=== PATIENT | male | born 1980 | race Caucasian/White ===

== ENCOUNTER 2022-01-11 18:50 | Emergency (ER) | payer MEDICAID ==
[~2022-01-11] VITALS: Ht 167.6 cm; Wt 72.0 kg
--- NOTE | 2022-01-11 20:16 | NUR ---
PT STATES HE LAST TOOK TYLENOL ABOUT 4 HOURS BEFORE HE ARRIVED HERE AT THE ER, STATES HE IS NOT SUPPOSED TO HAVE IBUPROFEN BECAUSE HE'S HAD "BLOODY DIARRHEA" AND THAT HE MAY HAVE ULCERATIVE COLITIS
[2022-01-11] MEDS ORDERED: acetaminophen 325mg tablet PO ONE (20:20)
[2022-01-11 20:41] LABS: BASOPHILS # (AUTO) 0.1 X10'3 (0-0.2); BASOPHILS % (AUTO) 0.5 % (0-1); EOSINOPHILS # (AUTO) 0.1 X10'3 (0-0.9); EOSINOPHILS % (AUTO) 0.7 % (0-6); HEMATOCRIT 42.1 % (42.0-52.0); HEMOGLOBIN 14.7 g/dl (14.0-17.9); LYMPHOCYTES # (AUTO) 1.1 X10'3 (1.1-4.8); LYMPHOCYTES % (AUTO) 9.4 % (21-51); MEAN CORPUSCULAR HEMOGLOBIN 30.8 PG (27.0-31.0); MEAN CORPUSCULAR HGB CONC 34.9 g/dL (33.0-36.5); MEAN CORPUSCULAR VOLUME 88.2 FL (78-98); MEAN PLATELET VOLUME 6.8 FL (7.4-10.4); NEUTROPHILS # (AUTO) 9.9 X10'3 (1.8-7.7); NEUTROPHILS % (AUTO) 81.4 % (42-75); PLATELET COUNT 435 X10'3 (140-440); RED BLOOD COUNT 4.77 X10'6 (4.70-6.10); RED CELL DISTRIBUTION WIDTH 12.8 % (11.5-14.5); WHITE BLOOD COUNT 12.1 X10'3 (4.5-11.0)
[2022-01-11 20:55] LABS: ALANINE AMINOTRANSFERASE 27 U/L (12-78); ALBUMIN 2.8 G/DL (3.4-5.0); ALBUMIN/GLOBULIN RATIO 0.7 (1.1-1.5); ALKALINE PHOSPHATASE 122 IU/L (46-116); ANION GAP 9 (8-16); ASPARTATE AMINO TRANSFERASE 21 U/L (10-37); BILIRUBIN,TOTAL 0.8 MG/DL (0.1-1.0); BLOOD UREA NITROGEN 17 MG/DL (7-18); BUN/CREATININE RATIO 14.3 (5.4-32.0); CALCIUM 8.3 MG/DL (8.5-10.1); CHLORIDE 97 MMOL/L (99-107); CREATININE 1.19 MG/DL (0.60-1.10); GLUCOSE 116 MG/DL (70-104); POTASSIUM 3.3 MMOL/L (3.5-5.1); SODIUM 131 MMOL/L (135-145); TOTAL PROTEIN 6.6 G/DL (6.4-8.2); eGFR 68 ML/MIN
--- NOTE | 2022-01-11 21:04 | NUR ---
PT REPORTS ROOMMATE HAS THE FLU
[2022-01-11 21:28] LABS: PLATELET ESTIMATE NORMAL; TOTAL CELLS COUNTED 100
--- NOTE | 2022-01-11 21:45 | NUR ---
NO PROVIDER HAS YET PICKED UP PT. ADVISED DR JARAMILLO ON 2 LITERS OF NS FLUID BOLUS D/T PT'S VITALS AND LAB FINDINGS. DR JARAMILLO OK'D ORDER. FLUIDS RUNNING.
[2022-01-11] MEDS ORDERED: normal saline 1000ml 1,000 ML IV ONE ×2 (22:10→23:10)
[2022-01-11] MEDS ORDERED: ondansetron/PF 4mg/2ml inj IV ONE (22:10)
[2022-01-11] MEDS ORDERED: metroNIDAZOLE-Flagyl 500mg/NS 100 ML IV STA (22:12)
[2022-01-11] MEDS ORDERED: iohexol 300mg/ml 100ml inj. ONE (22:14)
[2022-01-11] MEDS ORDERED: fentaNYL/PF 50MCG/1 ML 2ML syringe IV ONE (22:15)
[2022-01-11] MEDS ORDERED: ciprofloxacin lact 400MG/200ML 200 ML IV ONE (22:15)
[2022-01-11 22:20] LABS: CLARITY,URINE CLEAR (Clear); COLOR,URINE YELLOW (Yellow); GLUCOSE, URINE NEGATIVE (Neg); KETONES,URINE 40 mg/dl (Neg); LEUKOCYTE ESTERASE ,URINE NEGATIVE (Neg); NITRITES, URINE NEGATIVE (Neg); OCCULT BLOOD,URINE NEGATIVE (Neg); PROTEIN,URINE NEGATIVE (Neg); UROBILINOGEN,URINE 0.2 E.U/dL (0.2-1.0)
[2022-01-11 22:24] LABS: UA COLLECTION TYPE URINAL
--- NOTE | 2022-01-11 22:24 | NUR ---
PT TO CT.
[2022-01-11 22:40] LABS: URINE AMPHETAMINE SCREEN NEGATIVE (Neg); URINE BARBITUATE SCREEN NEGATIVE (Neg); URINE BENZODIAZEPINES SCREEN NEGATIVE (Neg); URINE CANNABINOID SCREEN NEGATIVE (Neg); URINE COCAINE SCREEN NEGATIVE (Neg); URINE METHADONE SCREEN NEGATIVE (Neg); URINE OPIATE SCREEN NEGATIVE (Neg); URINE PHENCYCLIDINE SCREEN NEGATIVE (Neg)
[2022-01-11] MEDS ORDERED: HYDROcodone/acetaminophen 10/325mg tab PO ONE (23:55)
[2022-01-11] MEDS ORDERED: CIPR-202 PO (23:55)
[2022-01-11] MEDS ORDERED: HYDR-3965 PO (23:55)
[2022-01-11] MEDS ORDERED: METR-159 PO (23:55)
[2022-01-12 02:26] VITALS: BP 104/66
== END 2022-01-12 02:20 | disposition home or self-care (01) ==
LOC: ER 18:51
DX: K52.89 Other specified noninfective gastroenteritis and colitis (principal); F17.200 Nicotine dependence, unspecified, uncomplicated; Z88.0 Allergy status to penicillin; Z88.6 Allergy status to analgesic agent; Z79.899 Other long term (current) drug therapy
CPT/HCPCS: 36415; 71045; 74177; 80053; 80305; 81003; 83605; 84145; 85007; 85025; 87040; 87502; 87503; 96365; 96375; 99285; J0744; J2405; J3010; J3490; J7030; Q9967

== ENCOUNTER 2022-01-15 21:09 | Emergency (ER) | payer MEDICAID ==
[~2022-01-15] VITALS: Ht 167.6 cm; Wt 77.3 kg
[~2022-01-15 21:09] MED LIST: CIPR-202 PO; HYDR-3965 PO; METR-159 PO
[2022-01-15 22:03] LABS: HEMOGLOBIN 13.5 g/dl (14.0-17.9); LYMPHOCYTES # (AUTO) 0.9 X10'3 (1.1-4.8); MONOCYTES # (AUTO) 1.5 X10'3 (0-0.9); NEUTROPHILS # (AUTO) 7.4 X10'3 (1.8-7.7); WHITE BLOOD COUNT 9.9 X10'3 (4.5-11.0)
[2022-01-15 22:05] LABS: BASOPHILS % (AUTO) 0.2 % (0-1); EOSINOPHILS # (AUTO) 0.1 X10'3 (0-0.9); EOSINOPHILS % (AUTO) 0.6 % (0-6); HEMATOCRIT 40.8 % (42.0-52.0); LYMPHOCYTES % (AUTO) 8.8 % (21-51); MEAN CORPUSCULAR HEMOGLOBIN 29.1 PG (27.0-31.0); MEAN CORPUSCULAR HGB CONC 33.2 g/dL (33.0-36.5); MEAN CORPUSCULAR VOLUME 87.7 FL (78-98); MEAN PLATELET VOLUME 6.6 FL (7.4-10.4); MONOCYTES % (AUTO) 15.3 % (2-12); NEUTROPHILS % (AUTO) 75.1 % (42-75); PLATELET COUNT 645 X10'3 (140-440); RED BLOOD COUNT 4.65 X10'6 (4.70-6.10); RED CELL DISTRIBUTION WIDTH 13.2 % (11.5-14.5)
[2022-01-15 22:22] LABS: ALANINE AMINOTRANSFERASE 15 U/L (12-78); ALBUMIN/GLOBULIN RATIO 0.5 (1.1-1.5); ALKALINE PHOSPHATASE 106 IU/L (46-116); ANION GAP 7 (8-16); ASPARTATE AMINO TRANSFERASE 10 U/L (10-37); BILIRUBIN,TOTAL 0.7 MG/DL (0.1-1.0); BLOOD UREA NITROGEN 10 MG/DL (7-18); CHLORIDE 97 MMOL/L (99-107); GLUCOSE 131 MG/DL (70-104); LIPASE < 50 U/L (73-393); POTASSIUM 3.5 MMOL/L (3.5-5.1); SODIUM 133 MMOL/L (135-145); TOTAL CARBON DIOXIDE 29.3 MMOL/L (24-32); TOTAL PROTEIN 5.8 G/DL (6.4-8.2); eGFR 83 ML/MIN
[2022-01-15 22:48] LABS: NUCLEATED RED BLOOD CELLS 2 /100WBC (0-0); PLATELET ESTIMATE NORMAL; TOTAL CELLS COUNTED 100
[2022-01-16] MEDS ORDERED: morphine 4 MG/ML inj SYRINge IV ONE (01:15)
[2022-01-16] MEDS ORDERED: acetaminophen 325mg tablet PO ONE (01:15)
[2022-01-16] MEDS ORDERED: ondansetron/PF 4mg/2ml inj IV ONE (01:15)
[2022-01-16 01:33] VITALS: BP 110/82
[2022-01-16] MEDS ORDERED: ONDA8TAB13 PO (01:54)
== END 2022-01-16 02:14 | disposition home or self-care (01) ==
LOC: ER 21:09
DX: K52.9 Noninfective gastroenteritis and colitis, unspecified (principal); R11.2 Nausea with vomiting, unspecified; R10.84 Generalized abdominal pain; Z88.1 Allergy status to other antibiotic agents; Z88.6 Allergy status to analgesic agent
CPT/HCPCS: 80053; 83690; 85007; 85025; 96374; 96375; 99284; J2270; J2405